=== PATIENT | male | born 1940 | race Caucasian/White ===

== ENCOUNTER 2017-03-11 13:19 | Inpatient (IN) | payer MEDICARE ==
[~2017-03-11] VITALS: Ht 175.3 cm; Wt 81.2 kg
[2017-03-11] VITALS (9 sets, daily range): BP systolic 91–135; BP diastolic 52–99
--- NOTE | 2017-03-11 13:27 | Emergency Room Report ---
History of Present Illness General Chief Complaint: Abnormal Labs Source: EMS (Heath Owens M.D.) Present Illness HPI 76 yo M hx of diabetes, ?peg tube unknown reason, p/w AMS. patient poor historian, oritned to name only but cannot give other hx. ems states friend called as patient not responding. baseline reportedly patient can walk, talk. unknown if has dementia. upon arrival patient had glucose >400. slightly tachy, hypoxic 89 on RA. no other hx obtained (Heath Owens M.D.) Allergies: Coded Allergies: No Known Allergies (Unverified , 03/11/17) Patient History Past Medical History: see triage record Past Surgical History: unable to obtain Pertinent Family History: unable to obtain Reviewed Nursing Documentation: PMH: Agreed, PSxH: Agreed (Heath Owens M.D. ) Nursing Documentation-PMH Past Medical History: No History, Except For Hx Diabetes: Yes Hx Cancer: Yes - FACIAL? (Heath Owens M.D.) Review of Systems All Other Systems: limited - unable to give hx (Heath Owens M.D.) Physical Exam Vital Signs Date Time Temp Pulse Resp B/P (MAP) Pulse Ox O2 Delivery O2 Flow Rate FiO2 03/11/17 13:21 110 20 97/59 95 Nasal Cannula 4.0 Sp02 EP Interpretation: reviewed, abnormal - 89 on RA,99 on 2L nc General Appearance: other - elderly male, chronically ill appearing, shaky, oriented to name not giving other hx Head: normocephalic, atraumatic Eyes: bilateral eye normal inspection, bilateral eye PERRL, bilateral eye EOMI ENT: normal ENT inspection, normal pharynx, normal voice, dry mucus membranes Neck: normal inspection, full range of motion, supple Respiratory: normal inspection, lungs clear, normal breath sounds, no respiratory distress, no retraction, no wheezing, speaking full sentences, chest symmetrical Cardiovascular #1: normal inspection, regular rate, rhythm, no edema, normal capillary refill Cardiovascular #2: 2+ radial (R), 2+ radial (L) Gastrointestinal: soft, non-distended, no guarding, other - peg tube in place, non tender all quadrants Musculoskeletal: normal inspection, back normal, normal range of motion, non- tender Neurologic: alert, motor strength/tone normal, sensory intact, other - awake, ff commands, oritned to name only, moves all ext spont Skin: normal inspection, normal color, no rash, warm/dry, well hydrated, normal turgor (Heath Owens M.D.) Medical Decision Making Diagnostic Impression: Primary Impression: Severe sepsis Additional Impressions: Uncontrolled diabetes mellitus Altered mental status ER Course 76 yo M with AMS, inc glucose DDX electrolyte disturbance / dehydration / DKA / HHS cardiac no hx or signs of trauma at this time to think acute intracranial bleed infectious: uti/pneumonia Plan IV access, labs, ekg, cxr, ivf, insulin ER course: Signed out patient to Dr Pearce 76 yo M with AMS glucose > 400 -pending remaining labs -anticipate admission to tele vs ICU (Heath Owens M.D.) ER Course Patient is a 76-year-old male who presented after increased altered level consciousness.Differential diagnosis included but was not limited to ischemic stroke, subarachnoid hemorrhage, hypoglycemia, spinal cord injury, neurodegenerative disorder, urinary tract infection, hypoxemia. The patient was endorsed to me by Dr. Owens. The patient was given IV insulin for hyperglycemia. He was started on IV antibiotics. The patient was noted to be somewhat confused. He was initially began on BiPAP. The patient noted have a markedly elevated blood sugar with no evidence of diabetic ketoacidosis. The patient noted be urinating frequently and been followed at [facility] for cancer. The patient is being admitted to ICU. Patient was discussed with Dr. Serjio Yap for inpatient management. Labs Test 03/11/17 13:25 03/11/17 14:50 White Blood Count 5.8 K/UL (4.8-10.8) Red Blood Count 4.10 M/UL (4.70-6.10) Hemoglobin 12.0 G/DL (14.2-18.0) Hematocrit 39.8 % (42.0-52.0) Mean Corpuscular Volume 97 FL (80-99) Mean Corpuscular Hemoglobin 29.1 PG (27.0-31.0) Mean Corpuscular Hemoglobin Concent 30.0 G/DL (32.0-36.0) Red Cell Distribution Width 19.5 % (11.6-14.8) Platelet Count 179 K/UL (150-450) Mean Platelet Volume 6.3 FL (6.5-10.1) Neutrophils (%) (Auto) 78.5 % (45.0-75.0) Lymphocytes (%) (Auto) 9.4 % (20.0-45.0) Monocytes (%) (Auto) 11.8 % (1.0-10.0) Eosinophils (%) (Auto) 0.0 % (0.0-3.0) Basophils (%) (Auto) 0.3 % (0.0-2.0) Urine Color Pale yellow Urine Appearance Clear Urine pH 5 (4.5-8.0) Urine Specific [place] 1.010 (1.005-1.035) Urine Protein Negative (NEGATIVE) Urine Glucose (UA) 4+ (NEGATIVE) Urine Ketones Negative (NEGATIVE) Urine Occult Blood 1+ (NEGATIVE) Urine Nitrite Negative (NEGATIVE) Urine Bilirubin Negative (NEGATIVE) Urine Urobilinogen Normal MG/DL (0.0-1.0) Urine Leukocyte Esterase Negative (NEGATIVE) Urine RBC 2-4 /HPF (0 - 0) Urine WBC 0-2 /HPF (0 - 0) Urine Squamous Epithelial Cells Occasional /LPF Urine Bacteria Occasional /HPF (NONE) Sodium Level 161 MMOL/L (136-145) Potassium Level 4.4 MMOL/L (3.5-5.1) Chloride Level 121 MMOL/L (98-107) Carbon Dioxide Level 35 MMOL/L (21-32) Anion Gap 6 (5-15) Blood Urea Nitrogen 97 mg/dL (7-18) Creatinine 2.2 MG/DL (0.55-1.30) Estimat Glomerular Filtration Rate mL/min (>60) Glucose Level 814 MG/DL (74-106) Calcium Level 10.6 MG/DL (8.5-10.1) Magnesium Level 3.7 MG/DL (1.8-2.4) Total Bilirubin 0.3 MG/DL (0.2-1.0) Aspartate Amino Transf (AST/SGOT) 22 U/L (15-37) Alanine Aminotransferase (ALT/SGPT) 24 U/L (12-78) Alkaline Phosphatase 145 U/L (46-116) Troponin I 0.047 ng/mL (0.000-0.056) Total Protein 7.1 G/DL (6.4-8.2) Albumin 3.5 G/DL (3.4-5.0) Globulin 3.6 g/dL Albumin/Globulin Ratio 1.0 (1.0-2.7) Acetone Level Negative (NEGATIVE) Lactic Acid Level 1.80 mmol/L (0.66-2.22) (Simon Pearce) EKG Diagnostic Results Rate: tachycardiac Rhythm: NSR ST Segments: other - diffuse ST depressions, RBBB ASA given to the pt in ED: No (Heath Owens M.D.) Rhythm Strip Diag. Results EP Interpretation: yes Rate: 115 Rhythm: NSR, no PVC's, no ectopy (Heath Owens M.D.) Chest X-Ray Diagnostic Results Chest X-Ray Diagnostic Results : Chest X-Ray Ordered: Yes Chest X-Ray Ordered: No # of Views/Limited/Complete: 1 View Indication: Chest Pain EP Interpretation: Yes Interpretation: no consolidation, no effusion, no pneumothorax, no acute cardiopulmonary disease Impression: No acute disease (Simon Pearce) Last Vital Signs Date Time Temp Pulse Resp B/P (MAP) Pulse Ox O2 Delivery O2 Flow Rate FiO2 03/11/17 13:21 110 20 97/59 95 Nasal Cannula 4.0 (Heath Owens M.D.) Status: unchanged (Simon Pearce) Disposition: ADMITTED INPATIENT Condition: Critical Heath Owens M.D. Mar 11, 2017 13:27 Simon Pearce Mar 11, 2017 21:51
[2017-03-11] MEDS ORDERED: ISOSORBIDE DINIT5 MG ORAL (13:42)
[2017-03-11] MEDS ORDERED: OMEPRAZOLE10 M1 ORAL (13:42)
[2017-03-11] MEDS ORDERED: HYDROCODON-ACE1 EA16 ORAL (13:42)
[2017-03-11] MEDS ORDERED: NOVOLOG100 UNIT/3 SUBQ (13:42)
[2017-03-11] MEDS ORDERED: LORAZEPAM0.5 GM MC (13:42)
[2017-03-11] MEDS ORDERED: PROSCAR5 MG ORAL (13:42)
[2017-03-11 13:49] LABS: BASOPHILS % (AUTO) 0.3 % (0.0-2.0); LYMPHOCYTES % (AUTO) 9.4 % (20.0-45.0); MEAN CORPUSCULAR HEMOGLOBIN 29.1 PG (27.0-31.0); MEAN CORPUSCULAR VOLUME 97 FL (80-99); MEAN PLATELET VOLUME 6.3 FL (6.5-10.1); MONOCYTES % (AUTO) 11.8 % (1.0-10.0); NEUTROPHILS % (AUTO) 78.5 % (45.0-75.0); PLATELET COUNT 179 K/UL (150-450); RED CELL DISTRIBUTION WIDTH 19.5 % (11.6-14.8); WHITE BLOOD COUNT 5.8 K/UL (4.8-10.8)
[2017-03-11 13:57] LABS: APPEARANCE,URINE CLEAR; KETONES,URINE NEGATIVE (NEGATIVE); LEUKOCYTE ESTERASE ,URINE NEGATIVE (NEGATIVE); NITRITE,URINE NEGATIVE (NEGATIVE); PH,URINE 5 (4.5-8.0); PROTEIN,URINE NEGATIVE (NEGATIVE); UROBILINOGEN,URINE NORMAL MG/DL (0.0-1.0)
[2017-03-11 14:11] LABS: BACTERIA,URINE OCCASIONAL /HPF; SQUAMOUS EPITHELIAL CELL,UR OCCASIONAL /LPF (NONE/OCC); WBC,URINE 0-2 /HPF (0 - 0)
[2017-03-11 14:19] LABS: ALANINE AMINOTRANSFERASE 24 U/L (12-78); ANION GAP 6 (5-15); ASPARTATE AMINO TRANSFERASE 22 U/L (15-37); CALCIUM 10.6 MG/DL (8.5-10.1); CARBON DIOXIDE 35 MMOL/L (21-32); CHLORIDE 121 MMOL/L (98-107); CREATININE 2.2 MG/DL (0.55-1.30); MAGNESIUM 3.7 MG/DL (1.8-2.4); POTASSIUM 4.4 MMOL/L (3.5-5.1); REFLEX LACTIC ACID YES OR NO YES; TOTAL PROTEIN 7.1 G/DL (6.4-8.2)
[2017-03-11 14:21] LABS: SODIUM 161 MMOL/L (136-145)
[2017-03-11] MEDS ORDERED: Albuterol/Ipratropium 3ml neb HHN ONE (15:15)
--- NOTE | 2017-03-11 15:36 | Diagnostic Imaging Report ---
Indication: Dyspnea Comparison: None A single view chest radiograph was obtained. Findings: Cardiomediastinal appearance is within normal limits for age. There is a PICC line in good position. Aorta is mildly ectatic due to atherosclerotic disease. Pulmonary vascularity is appropriate. The diaphragmatic contour is smooth and costophrenic angles are sharp. No pleural effusions are identified. The bones are unremarkable. Impression: No acute findings
[2017-03-11] MEDS ORDERED: cefTRIAXone 1 GM in NS 55 ML IVPB ONE (17:00)
--- NOTE | 2017-03-11 18:00 | Cardiology Progress Note ---
Assessment/Plan Assessment/Plan [id number] extendded time to [facility] record form [place] Objective Last 24 Hour Vital Signs Date Time Temp Pulse Resp B/P (MAP) Pulse Ox O2 Delivery O2 Flow Rate FiO2 03/11/17 17:47 98.5 110 14 125/65 99 Room Air 03/11/17 17:34 30 03/11/17 16:52 104 27 98 Facial 30 03/11/17 15:46 98.4 107 16 114/63 100 Room Air 03/11/17 15:40 112 24 100 Room Air 03/11/17 15:34 110 24 Room Air 03/11/17 15:32 112 24 99 Room Air 21 03/11/17 15:24 113 18 115/52 98 Room Air 03/11/17 13:47 108 16 Room Air 03/11/17 13:45 99.2 109 19 111/65 99 Room Air 03/11/17 13:21 110 20 97/59 95 Nasal Cannula 4.0 Intake and Output 03/11/17 03/12/17 19:00 07:00 Output Total 350 ml Balance -350 ml Output Urine Total 350 ml Laboratory Tests Test 03/11/17 13:25 03/11/17 14:50 White Blood Count 5.8 K/UL (4.8-10.8) Red Blood Count 4.10 M/UL (4.70-6.10) L Hemoglobin 12.0 G/DL (14.2-18.0) L Hematocrit 39.8 % (42.0-52.0) L Mean Corpuscular Volume 97 FL (80-99) Mean Corpuscular Hemoglobin 29.1 PG (27.0-31.0) Mean Corpuscular Hemoglobin Concent 30.0 G/DL (32.0-36.0) L Red Cell Distribution Width 19.5 % (11.6-14.8) H Platelet Count 179 K/UL (150-450) Mean Platelet Volume 6.3 FL (6.5-10.1) L Neutrophils (%) (Auto) 78.5 % (45.0-75.0) H Lymphocytes (%) (Auto) 9.4 % (20.0-45.0) L Monocytes (%) (Auto) 11.8 % (1.0-10.0) H Eosinophils (%) (Auto) 0.0 % (0.0-3.0) Basophils (%) (Auto) 0.3 % (0.0-2.0) Urine Color Pale yellow Urine Appearance Clear Urine pH 5 (4.5-8.0) Urine Specific [place] 1.010 (1.005-1.035) Urine Protein Negative (NEGATIVE) Urine Glucose (UA) 4+ (NEGATIVE) H Urine Ketones Negative (NEGATIVE) Urine Occult Blood 1+ (NEGATIVE) H Urine Nitrite Negative (NEGATIVE) Urine Bilirubin Negative (NEGATIVE) Urine Urobilinogen Normal MG/DL (0.0-1.0) Urine Leukocyte Esterase Negative (NEGATIVE) Urine RBC 2-4 /HPF (0 - 0) H Urine WBC 0-2 /HPF (0 - 0) Urine Squamous Epithelial Cells Occasional /LPF Urine Bacteria Occasional /HPF (NONE) Sodium Level 161 MMOL/L (136-145) *H Potassium Level 4.4 MMOL/L (3.5-5.1) Chloride Level 121 MMOL/L (98-107) H Carbon Dioxide Level 35 MMOL/L (21-32) H Anion Gap 6 (5-15) Blood Urea Nitrogen 97 mg/dL (7-18) H Creatinine 2.2 MG/DL (0.55-1.30) H Estimat Glomerular Filtration Rate mL/min (>60) Glucose Level 814 MG/DL (74-106) *H Lactic Acid Level 2.40 mmol/L (0.66-2.22) H 1.80 mmol/L (0.66-2.22) Calcium Level 10.6 MG/DL (8.5-10.1) H Magnesium Level 3.7 MG/DL (1.8-2.4) H Total Bilirubin 0.3 MG/DL (0.2-1.0) Aspartate Amino Transf (AST/SGOT) 22 U/L (15-37) Alanine Aminotransferase (ALT/SGPT) 24 U/L (12-78) Alkaline Phosphatase 145 U/L (46-116) H Troponin I 0.047 ng/mL (0.000-0.056) Total Protein 7.1 G/DL (6.4-8.2) Albumin 3.5 G/DL (3.4-5.0) Globulin 3.6 g/dL Albumin/Globulin Ratio 1.0 (1.0-2.7) Acetone Level Negative (NEGATIVE) BLAINE SEWELL Mar 11, 2017 18:00
[2017-03-11] MEDS ORDERED: Heparin 5000 units/ml inj SUBQ SCH (21:00)
[2017-03-11] MEDS ORDERED: NovoLOG Insulin Flexpen SUBQ SCH (21:30)
--- NOTE | 2017-03-11 21:45 | Consultation ---
DATE OF CONSULTATION: 03/11/2017 CARDIAC CONSULTATION CONSULTING PHYSICIAN: Gary Xie M.D. ATTENDING PHYSICIAN: Serjio Yap M.D. REFERRING PHYSICIAN: Serjio Yap M.D. REASON FOR REFERRAL: Hypotension. HISTORY OF PRESENT ILLNESS: This is an elderly gentleman, who is not able to provide any meaningful history whatsoever. There is a friend with him who indicates that the patient was somewhat confused yesterday, but it has gotten worse today and paramedics were summoned. The patient was brought to the emergency room. There is really no history of other significant issues available at this time through the patient. The patient in the emergency room was noted to have severely elevated blood sugar, hypotension, and tachycardia. This consultation was subsequently requested. I have had a chance to review some of the records from [facility] where the patient is followed by Dr. Brendan Chery and Dr. 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 ALLERGIES: There has been no reports of allergies to medications according to [facility] charts. MEDICATIONS: This is really unknown at this time although the last list from Dr. Chery's note from [facility] indicates he takes Percocet, he takes Imitrex 25 mg, Marinol, aspirin 81 mg, fentanyl, Zofran, Compazine, Ativan, [place], lispro insulin, Actos, Proscar, Altace 2.5 mg daily, Levemir insulin, vitamin D, Benadryl, and Lipitor. REVIEW OF SYSTEMS: Unable to obtain. PHYSICAL EXAMINATION: GENERAL: Shows to be elderly gentleman, in no respiratory distress although he is on BiPAP therapy at the present time. He is confused according to his friends and really not able to provide any meaningful history whatsoever. HEAD AND NECK: His neck is supple. No jugular venous distention. LUNGS: Appear to be clear to auscultation and percussion. CARDIAC: Distant heart sounds. Slightly tachycardic. No heaves or thrills noted. ABDOMEN: Soft and nontender. Positive bowel sounds. EXTREMITIES: There is no clubbing or cyanosis nor is there any edema. NEUROLOGIC: According to his friend, he is confused. LABORATORY AND DIAGNOSTIC DATA: His laboratories, white count 5.8, hemoglobin 12, and platelet count 179,000. Sodium 161, potassium 4.4, chloride 121, bicarbonate 35, BUN 97, creatinine 2.2, and glucose 814. Lactic acid originally 2.4 and subsequently 1.8. Calcium 10.6 and magnesium 3.7. Alkaline phosphatase 145. Troponin of 0.08. His electrocardiogram is available, but was performed by the paramedics and at this time appears to have right bundle with sinus tachycardia being documented. A lot of artifact and motion artifact and that EKG needs to be repeated. Apparently, he has had an x-ray done and no acute findings based on that x-ray. ASSESSMENT AND PLAN: 1. Altered mental status. 2. Profound volume depletion and dehydration. 3. Hypernatremia. 4. Diabetes mellitus with nonketotic state likely. 5. Renal failure. 6. History of anal cancer. 7. History of cancer at the base of the tongue. 8. Sinus tachycardia. 9. Hypotension secondary to volume depletion, rule out sepsis. Dr. Yap, this patient was seen in cardiac consultation. I have had a chance to review some of the patient's data. He has baseline creatinine of 1.2 and glucose was 327 at the time that he was seen by Dr. Chery back in 01/2016. renal insufficiency likely from volume depletion from poorly controlled diabetes at the present time and infectious etiology to be excluded. From cardiac point of view, he really does not seem to have any significant issues primarily although he is unable to provide history. He should have an echocardiogram performed. He should have repeat EKGs in sinus and continued to be aggressively hydrated because of his diabetic status and further recommendations from cardiac point of view as become necessary. His blood pressure has improved already with the food that he has received and he will be apparently moved to the intensive care unit for further management and closer monitoring. Management and treatment of diabetes and renal insufficiency as per yourself. Gary Xie M.D. DR: Jose JOB#: [id number] CC:
[2017-03-12] VITALS: BP 101/56
[2017-03-12 01:00] VITALS: BP 93/67
[2017-03-12] MEDS ORDERED: NovoLOG Insulin Flexpen SUBQ SCH (01:00)
[2017-03-12] MEDS: NovoLOG Insulin Flexpen SUBQ SCH ×2 (01:39→04:45)
[2017-03-12 02:00] VITALS: BP 125/69
[2017-03-12 03:00] VITALS: BP 125/69
[2017-03-12 04:00] VITALS: BP 119/69
[2017-03-12 05:00] VITALS: BP 137/79
[2017-03-12] MEDS ORDERED: 1/2 NS 1000ml IV ONE (05:34)
--- NOTE | 2017-03-12 12:11 | History & Physical ---
History and Physical History & Physicial HP dictated #[id number] DWAYNE GOLDMAN Mar 12, 2017 12:11
--- NOTE | 2017-03-12 18:00 | History and Physical Report ---
DATE OF ADMISSION: 03/11/2017 CHIEF COMPLAINT: The patient was admitted with change in mental status. HISTORY OF PRESENT ILLNESS: This is a 76-year-old male who was brought into the emergency room for confusion. The patient was found to have elevated blood sugars to 814. Also, serum sodium was elevated at 161. The patient was started on insulin drip and was admitted to intensive care unit. PAST MEDICAL HISTORY: Includes history of anal cancer as well as cancer of base of the tongue. The patient is status post chemotherapy. He has history of diabetes, hypertension, hyperlipidemia, peripheral vascular disease, claudication from history of endarterectomy on the right, status post left superficial femoral and popliteal angioplasty, history of sciatica on the right, erythema of skin, left popliteal artery occlusion, coronary artery disease, history of angioplasty, and history of headaches. MEDICATIONS: Reviewed and reconciled in the EMR. ALLERGIES: No known drug allergies. REVIEW OF SYSTEMS: As per Dr. Xie's note. LABORATORY FINDINGS: The chemistry panel shows serum sodium 161, potassium 4.1, chloride 121, CO2 25, BUN is 97, creatinine 2.2, blood sugar is 814, calcium 10.6, magnesium 3.7. CBC shows WBC of 5.8, hematocrit is 39.8, hemoglobin is 12, and platelet is 179,000. ASSESSMENT: This is a 76-year-old male, who was admitted with change in mental status, diabetes out of control, hypernatremia, renal failure, possibly acute as a result of prerenal azotemia and sepsis. PLAN: The patient was started on IV fluid and IV insulin. Labs will be followed and adjustment will be made in the patient's regimen. The patient was seen by Dr. Xie in cardiology consultation in the intensive care unit. Serjio Yap M.D. DR: Amari JOB#: [id number] CC:
--- NOTE | 2017-03-14 08:32 | Consultation ---
DATE OF CONSULTATION: 03/12/2017 ENDOCRINOLOGY CONSULTATION LOCATION: ICU, bed D. CONSULTING PHYSICIAN: Gil Sanchez M.D. REFERRING PHYSICIAN: Serjio Yap M.D. REASON FOR CONSULTATION: I was asked to see this 76-year-old male referred by Dr. Serjio Yap in endocrinology consultation for evaluation and management of diabetes mellitus type 2 out of control. PERTINENT HISTORY: The patient is diabetic on sliding scale ?reular Insulin ' qid. He has hypertenson and chronic renal failure,along with peripheral vascular disease. PAST MEDICAL HISTORY: negative_ MEDICATIONS: Levemir Insulin 10u sc Q12hr an dsliding cecille Novolog QID. FAMILY HISTORY: Unremarkable. PERSONAL HISTORY: Negative for tobacco use. REVIEW OF SYSTEMS: A 14-point review is negative. PHYSICAL EXAMINATION: GENERAL: The patient is in no acute distress. VITAL SIGNS: Blood pressure 120/70, pulse 114, respiratory rate 18, and temperature 98 degrees. HEENT: Unremarkable. NECK: Unremarkable. LUNGS: Clear. CARDIOVASCULAR: Heart sounds are regular. ABDOMEN: Soft. Bowel sounds present.PEG i n place EXTREMITIES: No edema. NEUROLOGIC: intact. LABORATORY AND DIAGNOSTIC DATA: Hemoglobin 12, HCt 3,white blood count 5800.plts 175k Sodium 161, BUN 93, creatinine 2.2 Chest x-ray and urinalysis were negative. ASSESSMENT: 1. Diabetes mellitus type 2, out of control. 2. Hypertension. 3. Hyperlipidemia. 4. Peripheral vascular disease. 5. Rectal cancer. 6. Sciatica. 7. Left popliteal artery occlusion . 8. Cancer of base of the tongue 9.Hypernatremic dehydration . PLAN: The patient was given regular insulin via insulin drip and \\_ and we placed himin but his partner was adamant that the patient be moved to [facility] for ongoing care. He was transferred to floor_ he was started on Levemir insulin 10 units q.12 hours and NovoLog sliding scale t.i.d. a.c. and at bedtime. he is to received free water through the PEG tube with_ Glucerna 1.2 at 40 mL per hour.BMP an dHba1c in am. Gil Sanchez M.D. DR: KARMA JOB#: [id number] CC: BLAYNE
--- NOTE | 2017-03-14 16:47 | Discharge Summary ---
Discharge Summary Hospital Course Date of Admission Mar 11, 2017 at 15:10 Date of Discharge Mar 12, 2017 at 05:35 Admitting Diagnosis severe sepsis, uncontrolled diabetes, hypernatremi HPI Casey Jenkins is a 76 year old male who was admitted on Mar 11, 2017 at 15:10 for Severe Sepsis,Uncontrolled Diabetes,Hypernatremia Hospital Course dc summary #[id number] Discharge Discharge Disposition Patient signed AMA Discharge Diagnoses: Discharge Instructions Discharge Instructions Special Instructions I have been assigned to complete a D/C Summary on this account. I was not involved in the patient management Oneida Thompson NP (Vanchtein) Mar 14, 2017 16:47
--- NOTE | 2017-03-15 17:30 | Discharge Summary 2 SIG ---
DATE OF ADMISSION: 03/11/2017 DATE OF DISCHARGE: 03/12/2017 REASON FOR ADMISSION: 76-year-old man with history of diabetes, hypertension, hyperlipidemia, peripheral vascular disease, rectal CA, tongue Ca , G-tube,was brought to emergency room by paramedics, called by his friend. The patient was not responding to his call, and his friend called paramedics. The patient was unable to provide upon arrival any information. Accu-Chek was above 400. He was hypoxic, 89% on the room air and slightly tachycardic. Laboratory workup revealed blood sugar -814, sodium -161, anion gap stable -6, CO2 -at 35, and lactic acid elevated -2.4. No leukocytosis. Tachycardic. Troponin was negative. EKG showed diffuse ST depression with right bundle-branch block. Chest x-ray revealed no acute cardiopulmonary disease. BUN-97 and creatinine- 2.2 . The patient was admitted for further management. ADMITTING DIAGNOSES: 1. Possible severe sepsis. 2. Altered mental status. 3. Uncontrolled diabetes mellitus. 4. Acute renal failure. 5. Hypernatremia. HOSPITAL STAY: The patient was admitted. The patient was started initially on insulin drip. Endocrinology consult was requested. After insulin drip discontinued, the patient was started on short and long acting insulin. Hemoglobin A1c was ordered. Blood sugar controlled. Prior to signing against medical advice, blood sugar - 159 and prior to it -135. The patient was counseled on diabetic diet and compliance with medication regimen. Psychiatric Specialist had seen and evaluated the patient and recommended aggressive hydration, echocardiogram, and repeat EKG. Free water provided via PEG. Patient was on IV hydration. Renal parameters were closely monitored with aggressive hydration. Blood culture preliminary negative. The patient was on empiric antibiotics. Pulmonary toilet provided as needed. Tube feeding was started. DVT prophylaxis provided. Antiemetic provided as needed. The patient decided to sign against medical advice because he wanted to go to [facility]. The patient was placed on the waiting list, however, he wanted to go now. The risks and consequences of signing against medical advice were discussed with the patient. At the time of the signing against medical advice, his mental status was back to baseline. The patient verbalized, explained to him risks and consequences, but still decided to sign against medical advice. FINAL DIAGNOSES: 1. Possible severe sepsis. 2. Altered mental status/acute encephalopathy secondary to profound volume depletion due to dehydration. 3. Dehydration. 4. Diabetes mellitus, out of control. 5. Acute renal failure. 6. Hypotension secondary to volume depletion. 7. Hypernatremia. 8. Hypertension. 9. Hyperlipidemia. 10. Peripheral vascular disease. 11. Rectal cancer. 12. Dysphagia, on gastrostomy tube. 13. Tongue cancer. 14. Acute renal failure secondary to prerenal azotemia and sepsis. Serjio Yap M.D. I have been assigned to dictate discharge summary on this account and I was not involved in the patient's management. Oneida HillmanSydenham HospitalSon N.PMing DR: HEATHER JOB#: [id number] CC: BLAYNE
--- NOTE | 2017-03-22 08:35 | Cardiology Report ---
APPROVED REPORT EKG Measurement Heart [id number] Atrial arrhythmia likely atrial tachycardia. Right bundle branch block Left posterior fascicular block Bifascicular block Possible Inferior infarct, age undetermined Abnormal ECG
== END 2017-03-12 05:35 | disposition left against medical advice (07) | DRG 871 ==
LOC: EDBD 13:19 → EMR 13:51 → EDBEDREQSVC 14:34 → ICU 15:10 → EDBEDREQSVC 15:16 → EDBEDREQ 15:28
DX: A41.9 Sepsis, unspecified organism (principal); G93.40 Encephalopathy, unspecified; N17.9 Acute kidney failure, unspecified; E87.0 Hyperosmolality and hypernatremia; E86.0 Dehydration; E11.65 Type 2 diabetes mellitus with hyperglycemia; I10 Essential (primary) hypertension; C20 Malignant neoplasm of rectum; Z43.1 Encounter for attention to gastrostomy; R65.20 Severe sepsis without septic shock; E78.5 Hyperlipidemia, unspecified; I73.9 Peripheral vascular disease, unspecified; C02.9 Malignant neoplasm of tongue, unspecified; R13.10 Dysphagia, unspecified; R09.02 Hypoxemia; I25.10 Atherosclerotic heart disease of native coronary artery without angina pectoris; Z98.61 Coronary angioplasty status
CPT/HCPCS: 36415; 71010; 80053; 81003; 82009; 82962; 83605; 83735; 84484; 85025; 87040; 93005; 94640; 94660; 94664; 94760; 99285; J1815; J2405; J7620